=== PATIENT | male | born 1975 | race Caucasian/White ===

== ENCOUNTER 2018-09-11 17:58 | Emergency (ER) | payer OTHER ==
[~2018-09-11] VITALS: Ht 182.9 cm; Wt 99.8 kg
[2018-09-11 18:00] VITALS: BP_SYST 143
[2018-09-11] MEDS ORDERED: MORPHINE 4 MG/ML INJ. SYRINGE IM ONE (18:15)
[2018-09-11] MEDS ORDERED: DIPH-TET-PERTUS Vaccine 0.5 ML VIAL (ADACEL) I.M. ONE (18:15)
[2018-09-11] MEDS ORDERED: ONDANSETRON 4 MG ODT TAB PO ONE (18:15)
[2018-09-11 19:10] VITALS: BP_SYST 140
== END 2018-09-11 19:10 | disposition home or self-care (01) ==
LOC: SED 17:58
DX: S50.12XA Contusion of left forearm, initial encounter (principal); R03.0 Elevated blood-pressure reading, without diagnosis of hypertension; Z90.89 Acquired absence of other organs; W01.198A Fall on same level from slipping, tripping and stumbling with subsequent striking against other object, initial encounter; Y93.89 Activity, other specified; Y92.89 Other specified places as the place of occurrence of the external cause; Y99.8 Other external cause status
CPT/HCPCS: 73090; 73130; 90471; 90715; 96372; 99283; J2270; Q0162

== ENCOUNTER 2022-06-05 16:59 | Emergency (ER) | payer OTHER ==
[~2022-06-05] VITALS: Ht 182.9 cm; Wt 108.9 kg
[2022-06-05 17:00] VITALS: BP_SYST 152
--- NOTE | 2022-06-05 17:00 | NUR ---
Patient to ER bed 08 to gown for evaluation. Side rails up. Report given to PHUC SARMIENTO AND PHUC VANESSA
--- NOTE | 2022-06-05 17:19 | NUR ---
PT COMES FROM HOME AFTER SLIPPING AND FALLING IN OWN BATHTUB TODAY. PAIN 10/10 TO RIGHT LOWER FLANK AREA, NO REDNESS OR OBVIOUS TRAUMA NOTED. PT WITH FACIAL GRIMACING AND RESTLESSNESS IN BED. PT DENIES ANY LOC. 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 RESP EVEB AND UNLABORED,ON RA @98%.
--- NOTE | 2022-06-05 17:28 | NUR ---
DR LYNNE IN ROOM FOR EXAM
[2022-06-05] MEDS ORDERED: methocarbamoL 500 MG TABLET PO ONE (17:45)
[2022-06-05] MEDS ORDERED: LIDOCAINE PATCH 5% 1 EA TP ONE (17:45)
[2022-06-05] MEDS ORDERED: KETOROLAC TROMETHAMINE 30 MG VIAL IM ONE (17:45)
[2022-06-05] MEDS ORDERED: MORPHINE 4 MG INJ. 4 MG/ML VIAL IVP ONE ×2 (18:15→19:15)
[2022-06-05] MEDS ORDERED: ONDANSETRON HCL 4 MG/2 ML VIAL IVP ONE (18:15)
--- NOTE | 2022-06-05 19:13 | NUR ---
PT C/O GENIE WITH MINIMAL MOVEMENT, MEDICATED ORDERED.
--- NOTE | 2022-06-05 19:14 | NUR ---
REPORT GIVEN TO HAILEY FRIEND.
[2022-06-05] MEDS ORDERED: HYDR-3927 PO (19:53)
[2022-06-05] MEDS ORDERED: IBUP-1970 PO (19:57)
[2022-06-05] MEDS ORDERED: ACET-2634 PO (19:57)
[2022-06-05] MEDS ORDERED: METH-634 PO (19:57)
[2022-06-05] MEDS ORDERED: fentaNYL CITRATE/PF 100 MCG/2 ML AMP IVP ONE (20:00)
[2022-06-05 20:45] VITALS: BP_SYST 131
--- NOTE | 2022-06-05 20:48 | NUR ---
Patient given written and verbal discharge instructions and verbalizes understanding. ER MD discussed with patient the results and treatment provided. Patient in stable condition. ID arm band removed. IV catheter removed intact and dressing applied, no active bleeding. CD imaging given as well as written result for CT report. Rx of norco, ibuprofen, robaxin, and extra strength tylenol given. Patient educated on pain management and to follow up with PMD. Opportunity for questions provided and answered.
== END 2022-06-05 20:48 | disposition home or self-care (01) ==
LOC: SED 16:59
DX: S32.018A Other fracture of first lumbar vertebra, initial encounter for closed fracture (principal); Z79.899 Other long term (current) drug therapy; W01.0XXA Fall on same level from slipping, tripping and stumbling without subsequent striking against object, initial encounter; Y93.89 Activity, other specified; Y92.89 Other specified places as the place of occurrence of the external cause; Y99.8 Other external cause status
CPT/HCPCS: 99285; 96374; 72131; 96375; 76376; 96376; 96372; J1885; J2405; J3010; J2270

== ENCOUNTER 2022-07-27 14:18 | Emergency (ER) | payer OTHER ==
[~2022-07-27] VITALS: Ht 182.9 cm; Wt 102.1 kg
[~2022-07-27 14:18] MED LIST: ACET-2634 PO; HYDR-3927 PO; IBUP-1970 PO; METH-634 PO
[2022-07-27 14:49] VITALS: BP_SYST 130
--- NOTE | 2022-07-27 14:53 | NUR ---
Placed in hallway bed 1 . Placed on edge sander, blood pressure machine and pulse oximeter. To gown for exam. Side rails up.
--- NOTE | 2022-07-27 14:53 | NUR ---
ER at bedside examining patient.
[2022-07-27] MEDS ORDERED: DIPHTH,PERTUSS(ACELL),TET VAC 0.5 ML VIAL (Tdap) I.M. ONE (15:00)
--- NOTE | 2022-07-27 15:00 | NUR ---
PT SUTURED BY .PT TOLERATED WELL.
[2022-07-27 15:07] VITALS: BP_SYST 138
[2022-07-27] MEDS ORDERED: BACITRACIN 1 GM OINT TP ONE (15:21)
--- NOTE | 2022-07-27 15:25 | NUR ---
REPAIRED WOUNDS DRESSED.
--- NOTE | 2022-07-27 15:32 | NUR ---
Patient given written and verbal discharge instructions and verbalizes understanding. ER MD discussed with patient the results and treatment provided. Patient in stable condition. ID arm band removed. NO Rx given. Patient educated on pain management and to follow up with PMD. Pain Scale 0. Opportunity for questions provided and answered. Medication side effect fact sheet provided.
--- NOTE | 2022-07-27 16:04 | NUR ---
Patient given written and verbal discharge instructions and verbalizes understanding. ER MD discussed with patient the results and treatment provided. Patient in stable condition. ID arm band removed. Patient educated on pain management and to follow up with PMD. Pain Scale [0]. Opportunity for questions provided and answered. Medication side effect fact sheet provided.
== END 2022-07-27 16:02 | disposition home or self-care (01) ==
LOC: SED 14:18
DX: S61.210A Laceration without foreign body of right index finger without damage to nail, initial encounter (principal); S61.212A Laceration without foreign body of right middle finger without damage to nail, initial encounter; Z79.899 Other long term (current) drug therapy; W26.0XXA Contact with knife, initial encounter; Y93.89 Activity, other specified; Y92.89 Other specified places as the place of occurrence of the external cause; Y99.8 Other external cause status
CPT/HCPCS: 90715; 99283